=== PATIENT | female | born 1950 | race Two or more races ===

== ENCOUNTER 2020-07-22 09:25 | Inpatient (IN) | payer MEDICARE ==
[~2020-07-22] VITALS: Ht 165.1 cm; Wt 82.6 kg
[2020-07-22] MEDS ORDERED: LEVETIRACETAM 500MG PREMIX 100 ML IV ONE (10:15)
[2020-07-22 10:24] LABS: CHLORIDE 119 mEq/L (98-107)
[2020-07-22 10:27] LABS: ETHANOL BLOOD < 10 mg/dL
[2020-07-22 11:36] LABS: CLARITY URINE CLEAR (CLEAR); COLOR URINE YELLOW (YELLOW); KETONES URINE NEGATIVE (NEGATIVE); LEUKOCYTE ESTERASE URINE NEGATIVE (NEGATIVE); NITRITE URINE NEGATIVE (NEGATIVE); OCCULT BLOOD URINE 1+ (NEGATIVE); PH URINE 6.5 (4.5-8.0); PROTEIN URINE 3+ (NEGATIVE); SPECIFIC GRAVITY URINE 1.013 (1.005-1.030); UROBILINOGEN URINE 0.2 E.U./dL (0.2-1.0)
[2020-07-22 11:43] LABS: BASOPHILS % 0.4 % (0.0-2.0); EOSINOPHILS % 0.6 % (0.0-5.0); HEMATOCRIT. 26.5 % (36.0-48.0); HEMOGLOBIN. 8.7 g/dL (12.0-16.0); LYMPHOCYTES % 21.6 % (20.0-50.0); MEAN CORPUSCULAR HEMOGLOBIN 29.1 pg (28.0-32.0); MEAN CORPUSCULAR VOLUME 88.8 fL (81.0-99.0); MEAN PLATELET VOLUME 9.9 fl (7.4-10.4); MONOCYTES % 5.8 % (2.0-8.0); NEUTROPHILS % 71.6 % (40.0-76.0); PLATELET 139 x1000/uL (130-400); RED BLOOD CELL COUNT 2.99 mill/uL (4.2-5.4)
[2020-07-22 12:03] LABS: *AMPHETAMINES SCREEN URINE NEGATIVE (NEGATIVE); *BARBITURATES SCREEN URINE NEGATIVE (NEGATIVE); *BENZODIAZEPINES SCREEN URINE PRESUMTIVE POSITIVE (NEGATIVE); *COCAINE SCREEN URINE NEGATIVE (NEGATIVE); METHADONE URINE SCREEN NEGATIVE (NEGATIVE); OPIATES URINE SCREEN NEGATIVE (NEGATIVE); PHENCYCLIDINE URINE SCREEN NEGATIVE (NEGATIVE)
[2020-07-22 12:04] LABS: CANNABINOID URINE SCREEN NEGATIVE (NEGATIVE)
[2020-07-22] MEDS ORDERED: LABETALOL HCL 200MG TABLET PO NR (12:45)
[2020-07-22] MEDS ORDERED: LABETALOL 5MG/ML SYR 20 MG/4 ML SYRINGE IV NR (12:45)
[2020-07-22] MEDS ORDERED: SODIUM POLYSTYRENE SULFONATE 15 G/60 ML BOT PO NR (14:00)
[2020-07-22] MEDS ORDERED: LORAZEPAM 2MG/ML CPJ IV PRN (15:30)
[2020-07-22] MEDS ORDERED: HALOPERIDOL LACTATE 5MG/ML VIAL IM NR (16:00)
[2020-07-22] MEDS ORDERED: DIPHENHYDRAMINE 50MG/ML VIAL IM NR (16:26)
[2020-07-22] MEDS ORDERED: HYDRALAZINE 20MG/ML VIAL IV NR (16:30)
[2020-07-22] MEDS ORDERED: CLONIDINE 0.1MG TABLET PO NR (16:30)
[2020-07-23] MEDS ORDERED: DEXTROSE 50% WATER 50ML SYRINGE IV PRN (08:00)
[2020-07-23] MEDS: BLOOD SUGAR DIAGNOSTIC STRIP TEST SCH ×4 (08:54→20:32)
[2020-07-23] MEDS: LEVETIRACETAM 500MG TABLET PO SCH ×2 (08:55→20:42)
[2020-07-23] MEDS: AMLODIPINE 10MG TABLET PO SCH ×2 (08:57→09:00)
[2020-07-23 11:46] VITALS: BP 130/48
[2020-07-23 12:00] VITALS: BP 135/74
[2020-07-23] MEDS: INSULIN LISPRO 100 UNITS/ML SUBCUT SCH ×4 (12:50→20:32)
[2020-07-23 15:40] VITALS: BP 161/57
[2020-07-23] MEDS ORDERED: AMLO10TA4 MT (17:23)
[2020-07-23 20:00] VITALS: BP 152/47
[2020-07-23 20:29] LABS: BASOPHILS % 0.4 % (0.0-2.0); EOSINOPHILS % 2.2 % (0.0-5.0); HEMATOCRIT. 25.5 % (36.0-48.0); HEMOGLOBIN. 8.4 g/dL (12.0-16.0); MEAN CORPUSCULAR HEMOGLOBIN 28.7 pg (28.0-32.0); MEAN CORPUSCULAR VOLUME 87.3 fL (81.0-99.0); MEAN PLATELET VOLUME 9.9 fl (7.4-10.4); MONOCYTES % 9.2 % (2.0-8.0); NEUTROPHILS % 43.2 % (40.0-76.0); PLATELET 160 x1000/uL (130-400); RED BLOOD CELL COUNT 2.92 mill/uL (4.2-5.4); RED CELL DISTRIBUTION WIDTH 15.2 % (11.6-14.6)
[2020-07-24 00:21] VITALS: BP 123/45
[2020-07-24 04:00] VITALS: BP 165/74
[2020-07-24] MEDS: BLOOD SUGAR DIAGNOSTIC STRIP TEST SCH ×4 (06:39→20:35)
[2020-07-24] MEDS: INSULIN LISPRO 100 UNITS/ML SUBCUT SCH ×4 (07:24→20:35)
[2020-07-24 07:58] VITALS: BP 172/61
[2020-07-24] MEDS: AMLODIPINE 10MG TABLET PO SCH (09:56)
[2020-07-24] MEDS: LEVETIRACETAM 500MG TABLET PO SCH ×2 (09:56→20:36)
[2020-07-24 11:56] VITALS: BP 126/54
[2020-07-24] MEDS: HYDRALAZINE HCL 100MG TABLET PO SCH ×2 (15:45→21:31)
[2020-07-24 16:20] VITALS: BP 135/50
[2020-07-24] MEDS: SODIUM CHLORIDE 0.45% 1,000 ML IV SCH (18:32)
[2020-07-24 20:00] VITALS: BP 156/66
[2020-07-24] MEDS ORDERED: HYDRALAZINE HCL 100MG TABLET PO SCH (21:00)
[2020-07-24] MEDS: HYDRALAZINE HCL 50MG TABLET PO SCH (22:00)
[2020-07-24 23:17] LABS: PHOSPHORUS 5.1 mg/dL (2.5-4.9)
[2020-07-25] VITALS: BP 107/49
[2020-07-25 04:00] VITALS: BP 110/50
[2020-07-25] MEDS: HYDRALAZINE HCL 50MG TABLET PO SCH ×2 (06:00→13:07)
[2020-07-25 07:03] LABS: BASOPHILS % 0.5 % (0.0-2.0); EOSINOPHILS % 0.7 % (0.0-5.0); HEMATOCRIT. 25.7 % (36.0-48.0); HEMOGLOBIN. 8.5 g/dL (12.0-16.0); LYMPHOCYTES % 26.7 % (20.0-50.0); MEAN CORPUSCULAR HEMOGLOBIN 28.9 pg (28.0-32.0); MEAN CORPUSCULAR VOLUME 87.6 fL (81.0-99.0); MEAN PLATELET VOLUME 10.4 fl (7.4-10.4); MONOCYTES % 8.2 % (2.0-8.0); NEUTROPHILS % 63.9 % (40.0-76.0); PLATELET 171 x1000/uL (130-400); RED BLOOD CELL COUNT 2.94 mill/uL (4.2-5.4); RED CELL DISTRIBUTION WIDTH 15.2 % (11.6-14.6)
[2020-07-25] MEDS: BLOOD SUGAR DIAGNOSTIC STRIP TEST SCH ×2 (07:04→12:04)
[2020-07-25] MEDS: INSULIN LISPRO 100 UNITS/ML SUBCUT SCH ×2 (07:04→13:15)
[2020-07-25] MEDS: LEVETIRACETAM 500MG TABLET PO SCH (08:50)
[2020-07-25 08:59] VITALS: BP 127/52
[2020-07-25] MEDS ORDERED: LISINOPRIL 10MG TABLET PO SCH (09:00)
[2020-07-25 12:00] VITALS: BP 158/61
[2020-07-25] MEDS ORDERED: KEPP500 PO (13:27)
[2020-07-25] MEDS ORDERED: HYDR-4135 PO (13:27)
[2020-07-25] MEDS: SODIUM CHLORIDE 0.45% 1,000 ML IV SCH (13:46)
[2020-07-25 14:57] VITALS: BP 158/61
== END 2020-07-25 16:08 | disposition home or self-care (01) | DRG 100 ==
LOC: EDBD 09:25 → ER 09:25 → MICUSO 22:11 → 6WST 07-23 09:37
PROVIDERS: ADMIT Internal Medicine; ATTEND Internal Medicine
DX: G40.909 Epilepsy, unspecified, not intractable, without status epilepticus (principal); N17.0 Acute kidney failure with tubular necrosis; E44.0 Moderate protein-calorie malnutrition; I67.4 Hypertensive encephalopathy; D64.9 Anemia, unspecified; D72.819 Decreased white blood cell count, unspecified; E87.8 Other disorders of electrolyte and fluid balance, not elsewhere classified; Z86.73 Personal history of transient ischemic attack (TIA), and cerebral infarction without residual deficits; I16.0 Hypertensive urgency; E11.22 Type 2 diabetes mellitus with diabetic chronic kidney disease; E87.5 Hyperkalemia; I12.9 Hypertensive chronic kidney disease with stage 1 through stage 4 chronic kidney disease, or unspecified chronic kidney disease; N18.9 Chronic kidney disease, unspecified; Z68.30 Body mass index [BMI] 30.0-30.9, adult
CPT/HCPCS: 36415; 71045; 76770; 80048; 80053; 80305; 80320; 81003; 82962; 83036; 83970; 84100; 85025; 93005; 95816; 99291; J0360; J1200; J1630; J1815; J1953; J2060; J3490; G0480